=== PATIENT | female | born 1940 | race Caucasian/White ===

== ENCOUNTER 2017-02-23 09:35 | Inpatient (IN) | payer MEDICARE, OTHER ==
--- NOTE | ~2017-02-23 | DS ---
Unit #: [id number] #: [id number] Patient: FARSHAD PAUL [id number] [address] [place], [place] [address] [id number] I MR#: [id number] NAME: FARSHAD PAUL ROOM: 341 Age: 76 Sex: F Admission Date: 02/23/2017 : 1940 Discharge Date: 02/25/2017 Attending Physician: Trisha Rose M.D. Primary Care Physician: Cristian Mak M.D. DISCHARGE SUMMARY REASON FOR ADMISSION Symptomatic anemia. HISTORY OF PRESENT ILLNESS/HOSPITAL COURSE The patient is a 76-year-old, very pleasant female who originally was admitted secondary to a hemoglobin of 5.5, MCV of 63. Please see H and P for complete details. Through hospital course, she was typed and crossed and transfused for a total of three units of packed RBCs. She has also undergone a CT angiogram chest PE protocol secondary to dyspnea as well as prior PE history. It was negative for acute pulmonary embolism. However, it did show questionable thyroid nodule as well as gallstones which were also noted. Pneumonitis could not be excluded. However, the patient did not have any acute symptoms. We placed consultation to Dr. Talavera of [facility]. The patient underwent upper GI endoscopy as well as sigmoidoscopy until approximately 20 cm. Upper GI endoscopy was essentially normal. Sigmoidoscopy until 20 cm was normal as well. There was no active bleeding which was noted. Internal hemorrhoids were commented on. CBC today shows a hemoglobin of 8.4. MCV is at 68.5. Creatinine at the time of discharge is 0.6. While she was here, she received Venofer IV. She also received vitamin B12 times one. At time of discharge, she will follow up with Dr. Anastasiia Torres at [facility] for repeat CBC in approximately 7 to 10 days. Her current baseline hemoglobin is approximately 8. She was made aware that the most likely initially for her anemia is iron deficiency. Her Ferritin level is 7. She should also have vitamin B12 IM set up as an outpatient as her vitamin B12 level currently stands at 193. FINAL DISCHARGE DIAGNOSES 1. Dyspnea secondary to symptomatic anemia. 2. Anemia likely iron deficiency with negative upper GI endoscopy as well as negative sigmoidoscopy with baseline hemoglobin approximately 8 to 8.5. 3. Prior history of pulmonary embolism 1988. 4. Prior history of COPD followed by Dr. Castellanos as an outpatient. 5. Obesity. 6. B12 deficiency. Unit #: [id number] #: [id number] Patient: FARSHAD PAUL FINAL DISCHARGE MEDICATIONS 1. Pulmicort two inhalations daily. 2. Tylenol 650 mg p.o. q.6 p.r.n. 3. Serevent Diskus one inhalation b.i.d. 4. Protonix 40 mg p.o. daily. 5. Avapro 300 mg p.o. daily. DISCHARGE CONDITION Stable. DISCHARGE DISPOSITION Home. FOLLOWUP 1. Followup as an outpatient for aforementioned thyroid nodule where patient requires outpatient ultrasound of thyroid. 2. Followup Dr. Castellanos of Pulmonary Services in two to three months for repeat CT chest. 3. Follow up with Dr. Anastasiia Torres in 7 to 10 days for repeat CBC as well as monitoring of anemia and adjustments of B12 medications. Dictated by... Shayan Garnett/paco TD: 02/28/2017 07:57 JOB #: [id number] DISCHARGE SUMMARY Page 1 of 1 X Trisha Rose MD X DISCHARGE SUMMARY
--- NOTE | ~2017-02-23 | CT16 ---
[facility] A Service of [facility] / [facility] RADIOLOGY TEXT RESULTS PATIENT: FARSHAD PAUL LOCATION: [facility] 341-01 : 41 UNIT #: [id number] AGE: [address]: Trisha Rose MD SEX: F ORDER DR: [id number] [facility] [address] [facility]. [place], [place] [address] [id number] MR#: [id number] Acc #: [id number] NAME: FARSHAD PAUL : 1940 SEX: F STUDY DATE/TIME: 02/23/2017 12:27 UNIT: [facility] ROOM: STUDY DESCRIPTION: CT Angio Chest for PE Attending Physician: Lai Banks M.D. Ordering Physician: Lai Banks M.D. Primary Care Physician: Cristian Mak M.D. MEDICAL IMAGING REPORT This report is preliminary unless electronic signature is present EXAM CT angiography chest for PE 02/23/2017 HISTORY Short of air for [address] pulmonary angiography performed with intravenous administration 80 mL Isovue-370. Three-dimensional reconstructions performed through pulmonary arteries. This CT exam was performed with one or more of the following radiation dose reduction techniques: automatic exposure control, adjustment of mA and/or kV according to patient size, and iterative reconstruction. FINDINGS 1.7 cm rim calcified nodule in the right thyroid lobe posteriorly. If not previously evaluated best further characterized with elective thyroid ultrasound. Smaller nodules seen elsewhere in the bilateral thyroid lobes. No axillary, mediastinal or hilar adenopathy. Heart mildly enlarged. No pleural effusions. Liver unremarkable. There is layering high-density material in the dependent lower gallbladder segment. Appearance raises the possibility of multiple small layering gallstones. Milk of calcium could be considered. Excretion of prior intravascular contrast load could be considered. Correlate with any known recent intravascular contrast administration. There is no ductal dilatation and no indication of choledocholithiasis. No pericholecystic inflammatory change. The spleen, pancreas, adrenal glands and visualized portions of kidneys unremarkable. Small hiatal hernia. Remainder of visualized esophagus, stomach, small bowel and colon unremarkable. [facility] A Service of [facility] / [facility] RADIOLOGY TEXT RESULTS PATIENT: FARSHAD PAUL LOCATION: [facility] 341-01 : 41 UNIT #: [id number] AGE: [address]: Trisha Rose MD SEX: F ORDER DR: Pulmonary parenchyma shows underlying centrilobular and panlobular emphysema. In the atu-su-iasdh lung zones there is some subtle linear interstitial prominence. This may simply reflect chronic change related to the patient's emphysema. The possibility of a very mild interstitial pneumonitis could be considered in the appropriate context. There is no dense airspace disease. There is some minimal patchy ground-glass densities at the dependent left lung base probably atelectatic in nature. Mild pneumonitis could be considered. No suspicious nodule. The pulmonary arteries are well opacified. Some images through the lower lung zones degraded by respiratory motion artifact. There is no compelling evidence of acute pulmonary thromboembolic disease. No aortic aneurysm or dissection. There are atherosclerotic arterial calcifications. The visualized aortic branch vessels are patent. Bony structures show no acute abnormality. IMPRESSION 1. No PE. 2. No evidence of aortic aneurysm or dissection. 3. Underlying centrilobular and panlobular emphysema. 4. Mild linear interstitial prominence in bqo-yh-lxmon lung zones bilaterally could be a reflection of chronic interstitial change in context of emphysema. Mild interstitial pneumonitis might be considered. In addition there are some mild patchy ground-glass densities at the left lung base which may simply represent dependent atelectasis. Mild pneumonitis not excluded. There is no dense airspace disease, pleural effusion pneumothorax or suspicious nodule. 5. 1.7 cm rim-calcified dominant thyroid nodule in the right thyroid lobe. If not previously evaluated, best further characterized with elective thyroid ultrasound. 6. Layering high-density material in the dependent gallbladder most likely layering tiny gallstones versus milk of calcium. In the appropriate clinical context, this could reflect hepatobiliary excretion of a recent intravascular contrast load. Correlate with any recent intravascular contrast load. Gallbladder otherwise unremarkable. There is no biliary ductal dilatation. Dictated by... Silvano Milton M.D. THIS IS AN ELECTRONICALLY VERIFIED REPORT Silvano Milton M.D. at 02/24/2017 6:32 PM UZAIR/oscar TD: 02/23/2017 16:58 JOB #: [id number] MEDICAL IMAGING REPORT Page 1 of 1 COPY
--- NOTE | ~2017-02-23 | CR72 ---
[facility] A Service of [facility] RADIOLOGY TEXT RESULTS PATIENT: VERONICA PAUL LOCATION: [facility] 341 : 41 UNIT #: [id number] AGE: [address]: Trisha Rose MD SEX: F ORDER DR: [id number] [facility] [address] [facility]. [place], [place] [address] [id number] I MR#: [id number] Acc #: [id number] NAME: VERONICA PAUL : 1940 SEX: F STUDY DATE/TIME: UNIT: [facility] ROOM: 341 STUDY DESCRIPTION: CR Chest Single View Portable Attending Physician: Trisha Rose M.D. Ordering Physician: Ed Doctor [id number] [facility] Primary Care Physician: Cristian Mak M.D. MEDICAL IMAGING REPORT This report is preliminary unless electronic signature is present EXAM Chest portable 02/23/2017 1012 hours HISTORY 76-year-old with shortness of air and weakness today. History of hypertension and COPD. COMPARISON None. FINDINGS Single upright portable view demonstrates a mild cardiomegaly and atherosclerotic change in the aorta. The aortic and mediastinal contours are normal. There is hyperinflation of the lungs with interstitial change right greater than left lung. Findings are most suggestive of mild interstitial edema. There is no dense airspace opacification or pleural fluid. IMPRESSION Mild cardiomegaly with bilateral interstitial change right greater than left lung suggesting the presence of edema, less likely interstitial pneumonia. There is no pleural fluid. No pneumothorax. Dictated by... Veronica Holloway M.D. THIS IS AN ELECTRONICALLY VERIFIED REPORT Veronica Holloway M.D. at 02/24/2017 9:25 AM JUAN/bruce TD: 02/23/2017 13:36 JOB #: [id number] [facility] A Service of [facility] RADIOLOGY TEXT RESULTS PATIENT: VERONICA PAUL LOCATION: [facility] 341 : 41 UNIT #: [id number] AGE: [address]: Trisha Rose MD SEX: F ORDER DR: MEDICAL IMAGING REPORT Page 1 of 1 COPY
--- NOTE | ~2017-02-23 | US84 ---
[id number] [facility] [[email or web address] [address] [facility]. [place], [place] [address] [id number] I MR#: [id number] Acc #: [id number] NAME: FARSHAD PAUL : 1940 SEX: F STUDY DATE/TIME: 02/23/2017 15:53 UNIT: [facility] PCU ROOM: 341 STUDY DESCRIPTION: US LE Veins Complete Tres Stdy Attending Physician: Trisha Rose M.D. Ordering Physician: Trisha Rose M.D. Primary Care Physician: Cristian Mak M.D. MEDICAL IMAGING REPORT This report is preliminary unless electronic signature is present EXAM Bilateral leg vein Doppler, 02/23. INDICATION Shortness of air for 2 weeks. Elevated D-dimer. History of pulmonary embolism. TECHNIQUE Venous ultrasound examination of both lower extremities was performed using grayscale, spectral Doppler and color flow Doppler imaging. FINDINGS The examination is negative. There is no evidence of deep venous thrombus from the groin to the lower calf bilaterally. Visualized greater saphenous veins are also patent. IMPRESSION Negative examination. No evidence of lower extremity DVT. Dictated by... Stefan Anders Jr., M.D. THIS IS AN ELECTRONICALLY VERIFIED REPORT Stefan Anders Jr., M.D. at 02/25/2017 3:53 PM PAULA/fortino TD: 02/23/2017 22:39 JOB #: [id number] MEDICAL IMAGING REPORT Page 1 of 1 COPY
--- NOTE | ~2017-02-23 | EKG ---
PATIENT: FARSHAD PAUL UNIT #: [id number] Ventricular Rate: 88 BPM Atrial Rate: 88 BPM P-R Interval: 146 ms QRS Duration: 74 ms Q-T Interval: 366 ms QTC Calculation(Bezet): 442 ms P Petersburg: 62 degrees Calculated R [place]: 50 degrees Calculated T Petersburg: 61 degrees Diagnosis Line: Normal sinus rhythm Diagnosis Line: Normal ECG Diagnosis Line: No previous ECGs available Diagnosis Line: Confirmed by COCO BEJARANO MD ([id number]) on Diagnosis Line: 02/23/2017 2:03:58 PM INTERPRETING MD: DARCI ROSALES
--- NOTE | ~2017-02-23 | OR ---
Unit #: [id number] #: [id number] Patient: FARSHAD PAUL [id number] [address] [place], [place] [address] [id number] I MR#: [id number] NAME: FARSHAD PAUL ROOM: 341 Date of Procedure: 02/24/2017 Admission Date: 02/23/2017 Surgeon: Randolph Talavera M.D. : 1940 Attending Physician: Trisha Rose M.D. Primary Care Physician: Cristian Mak M.D. OPERATIVE REPORT PROCEDURE PERFORMED Esophagogastroduodenoscopy to distal duodenum with sigmoidoscopy to 30 cm. INDICATIONS FOR PROCEDURE A 76-year-old presented with severe iron-deficiency anemia, blood in the stool. MEDICATIONS Monitored anesthesia. POSTOPERATIVE FINDINGS 1. Hiatal hernia. 2. Nonobstructing esophageal ring. 3. Normal stomach. 4. Normal duodenum and distal duodenum. No stigmata or signs of recent upper GI bleeding. 5. Sigmoidoscopy carried out to 20 cm past the rectosigmoid area, because of stool, I cannot go any further. 6. No active bleeding was seen. 7. Scarring from recent banding was seen along with significant internal hemorrhoids. PLAN Continue with iron infusion as well as blood transfusion as needed. Consider repeat colonoscopy for continued bleeding. DESCRIPTION OF PROCEDURE The patient was explained of the procedure, risks, and benefits along with risks and benefits of anesthesia. She was brought to the endoscopy room. Propofol anesthesia was given. Bite block was placed. The scope was passed down the mouth into esophagus, stomach, duodenum, and distal duodenum. Findings as described. No biopsies were taken. Gently, I pulled it out of the patient's mouth. Rectal exam was done, which was normal. EGD scope was used. The scope was lubricated passed up the rectum, advanced up to 20 to 30 cm. At this time, we have to stop because of presence of stool. Rectal mucosa was normal. Scarring seen from recent banding of the internal hemorrhoids. Internal hemorrhoids were noted also. Gently, the scope was pulled out. She tolerated it well. Unit #: [id number] #: [id number] Patient: FARSHAD PAUL Dictated by... Shayan Keating/tabatha TD: 02/24/2017 13:52 JOB #: [id number] OPERATIVE REPORT Page 1 of 1 X Randolph Talavera MD PROCEDURE OPERATIVE NOTE
--- NOTE | ~2017-02-23 | HP ---
Unit #: [id number] #: [id number] Patient: FARSHAD PAUL [id number] [address] [place], [place] [address] [id number] E MR#: [id number] NAME: FARSHAD PAUL ROOM: Age: 76 Sex: F Admission Date: 02/23/2017 : 1940 Attending Physician: Lai Banks M.D. Primary Care Physician: Cristian Mak M.D. HISTORY AND PHYSICAL REASON FOR ADMISSION Dyspnea, profound symptomatic anemia. HISTORY OF PRESENT ILLNESS Patient is a 76-year-old female who states over the past 4-5 weeks she has had progressive shortness of breath as well as dyspnea on exertion worsening over the past 72 hours to the point where she can only walk a few steps. She presented to the ER for further evaluation. While she was evaluated here, routine laboratory studies were performed, which showed a hemoglobin of 5.5 and MCV of 63 and thus she is being admitted for the same. She has a prior history of a DVT in 1988. D-dimer was also ordered by ER physician and was noted to be elevated at 1025 and, therefore, CTA chest is currently pending. Other routine laboratory studies performed show a BMP with potassium of 3.4. LFTs as well as creatinine unremarkable. Cardiac enzymes, first set, are negative. Patient tells me that approximately 2 or 3 months ago, she had a colonoscopy performed by Dr. Donovan. Was told that she had hemorrhoids, but otherwise unremarkable. She has no prior history of upper GI endoscopy. She states that she takes aspirin, Serevent, as well as her inhalers on a regular basis, but she takes no other medications routinely. PAST MEDICAL HISTORY 1. Pulmonary embolism in 1988, treated per patient. Not on current anticoagulation. 2. Prior history of COPD followed by Dr. Castellanos as an outpatient. 3. Obesity. PAST SURGICAL HISTORY Hemorrhoidectomy. Recent colonoscopy, I believe October 2016. HOME MEDICATIONS 1. Serevent. 2. Pulmicort. 3. Aspirin. ALLERGIES Sulfa. FAMILY HISTORY Reviewed. Noncontributory and not pertinent. Unit #: [id number] #: [id number] Patient: FARSHAD PAUL SOCIAL HISTORY Quit smoking in 1988. Approximate 30-40 pack/year smoking history. Alcohol use: Drinks twice a week. Negative illicit drug use. REVIEW OF SYSTEMS Please see HPI. Twelve-point otherwise negative, except for those positives noted in the HPI. PHYSICAL EXAM VITAL SIGNS: Temperature 98, pulse 96, respiratory rate 16, and blood pressure (1) . GENERAL APPEARANCE: 76-year-old female lying comfortably in no acute distress. HEENT: Head: Atraumatic and normocephalic. Ears: Tympanic membranes do not reveal any erythema or injection. NECK: Supple. CVS: S1 and S2 without murmur. RESPIRATORY: Clear. GI/ABDOMEN: Nontender and nondistended. LOWER EXTREMITIES: No evidence of lower extremity edema. No calf tenderness. NEUROLOGIC: Patient A and O x3. No evidence of any focal nerve deficits. DIAGNOSTIC STUDIES LABS AT TIME OF ADMISSION: Please see above. Hemoglobin 5.5 noted. ER COURSE Patient received Solu-Medrol. Transfusion currently ordered and pending. Lasix 40 mg IV x1 as well as Protonix 40 mg IV x1 has been ordered. INITIAL ADMISSION DIAGNOSES 1. Symptomatic anemia. 2. Dyspnea. 3. Underlying COPD. 4. Elevated D-dimer. CTA chest currently pending. 5. Prior history of PE, 1988. 6. Remote history of tobacco abuse. PLAN Admission, telemetry floor. Transfuse. GI consultation. Follow routine laboratory studies. Follow up on CTA chest. PPI therapy at b.i.d. dosing. Two-dimensional echo secondary to underlying dyspnea. Patient ultimately may require hematological consultation as well in consideration that patient did have a negative colonoscopy approximately three months ago. Certainly, upper GI occult bleeding needs to be ruled out. Further hospital course to follow. Patient is full code. Dictated by Shayan Garnett/jac TD: 02/23/2017 13:38 JOB #: [id number] Unit #: [id number] #: [id number] Patient: FARHSAD PAUL HISTORY AND PHYSICAL Page 1 of 1 X Trisha Rose MD HISTORY AND PHYSICAL
[2017-02-23 10:29] LABS: POC - CKMB <1.0 ng/mL (0.0-7.9); POC - TROPONIN <0.05 ng/mL (<=0.05)
[2017-02-23 10:55] LABS: BASOPHIL# 0.1 X10e3 (0-0.3); BASOPHIL% 1.1 % (0-2.5); EOSINOPHIL# 0.3 X10e3 (0-0.7); EOSINOPHIL% 4.4 % (0.0-7.0); HEMATOCRIT 18.8 % (35.0-45.0); LYMPHOCYTE# 1.3 X10e3 (1.0-3.5); LYMPHOCYTE% 17.2 % (17.0-45.0); MEAN CELL VOLUME 63.3 FL (83-96); MEAN CORPUSCULAR HEMOGLOBIN 18.6 PG (28-34); MEAN CORPUSCULAR HGB CONC 29.3 g/dL (30-36); MEAN PLATELET VOLUME 7.9 FL (6.5-11.5); MONOCYTE# 0.7 X10e3 (0-1.0); MONOCYTE% 8.9 % (3.0-12.0); NEUTROPHIL# 5.1 X10e3 (1.5-7.1); NEUTROPHIL% 68.4 % (40-75); PLATELET COUNT 393 X10e3 (140-420); RED BLOOD COUNT 2.97 X10e (3.90-5.30); RED CELL DISTRIBUTION WIDTH 19.2 % (11.0-15.5); WHITE BLOOD COUNT 7.5 X10e3 (4.0-10.5)
[2017-02-23 11:01] LABS: DIFF IND YES; HEMOGLOBIN 5.5 gm/dL (12.0-16.0)
[2017-02-23 11:07] LABS: ALBUMIN SERUM 3.4 g/dL (3.5-5.0); BILIRUBIN, DIRECT 0.1 mg/dL (0.0-0.2); BILIRUBIN,INDIRECT 0.7 mg/dL (0.0-0.9); BILIRUBIN,TOTAL 0.8 mg/dL (0.2-2.0); BUN/CREATININE RATIO 14.28; CALCIUM SERUM 8.4 mg/dL (8.4-10.2); CREATININE SERUM 0.7 mg/dL (0.6-1.4); GLOM FILT RATE Estimated 84.8 mL/min (>60); POTASSIUM 3.4 mmol/L (3.5-5.1); PROTEIN TOTAL SERUM 6.8 g/dL (6.0-8.3)
[2017-02-23 11:29] LABS: ANISOCYTOSIS MOD; RBC NORMAL YES
[2017-02-23 11:30] LABS: HYPOCHROMIA MOD; OVALOCYTES PRESENT; POIKILOCYTOSIS SL; POLYCHROMASIA SL
[2017-02-23 11:33] LABS: PLATELET ESTIMATE NORMAL (NORMAL)
[2017-02-23 12:11] LABS: POC - CKMB <1.0 ng/mL (0.0-7.9); POC - TROPONIN <0.05 ng/mL (<=0.05)
[2017-02-23] MEDS ORDERED: ASPIRIN81 M2 PO (13:43)
[2017-02-23] MEDS ORDERED: HYDROCHLOROTH12.5 M1 PO (13:44)
[2017-02-23] MEDS ORDERED: PULMICORT180 MCG/A1 INH (13:44)
[2017-02-23] MEDS ORDERED: IRBESARTAN-HCT1 EAC1 PO (13:44)
[2017-02-23] MEDS ORDERED: SEREVENT DISKU50 MCG INH (13:45)
[2017-02-23] MEDS ORDERED: PATIENT'S PHARMACY (13:46)
[2017-02-23 19:25] LABS: HEMATOCRIT 28.5 % (35.0-45.0); HEMOGLOBIN 8.9 gm/dL (12.0-16.0)
[2017-02-24 09:26] LABS: HEMATOCRIT 26.4 % (35.0-45.0); MEAN CORPUSCULAR HGB CONC 30.4 g/dL (30-36); MEAN PLATELET VOLUME 8.1 FL (6.5-11.5); RED BLOOD COUNT 3.82 X10e (3.90-5.30); RED CELL DISTRIBUTION WIDTH 22.7 % (11.0-15.5); WHITE BLOOD COUNT 9.6 X10e3 (4.0-10.5)
[2017-02-24 09:27] LABS: MEAN CELL VOLUME 69.1 FL (83-96)
[2017-02-24 09:49] LABS: FERRITIN 7 ng/mL (11-307)
[2017-02-24 10:10] LABS: BUN/CREATININE RATIO 18.33; CALCIUM SERUM 8.5 mg/dL (8.4-10.2); CREATININE SERUM 0.6 mg/dL (0.6-1.4); GLOM FILT RATE Estimated 89.2 mL/min (>60); POTASSIUM 3.9 mmol/L (3.5-5.1)
[2017-02-24 14:38] LABS: HEMATOCRIT 28.9 % (35.0-45.0); HEMOGLOBIN 8.5 gm/dL (12.0-16.0)
[2017-02-25 08:56] LABS: HEMATOCRIT 27.5 % (35.0-45.0); HEMOGLOBIN 8.4 gm/dL (12.0-16.0); MEAN CELL VOLUME 68.5 FL (83-96); MEAN CORPUSCULAR HGB CONC 30.7 g/dL (30-36); MEAN PLATELET VOLUME 8.1 FL (6.5-11.5); RED BLOOD COUNT 4.02 X10e (3.90-5.30); RED CELL DISTRIBUTION WIDTH 22.9 % (11.0-15.5); WHITE BLOOD COUNT 9.6 X10e3 (4.0-10.5)
[2017-02-25 09:29] LABS: ALBUMIN SERUM 3.4 g/dL (3.5-5.0); BILIRUBIN,TOTAL 0.7 mg/dL (0.2-2.0); BUN/CREATININE RATIO 16.66; CALCIUM SERUM 8.6 mg/dL (8.4-10.2); CREATININE SERUM 0.6 mg/dL (0.6-1.4); GLOM FILT RATE Estimated 89.2 mL/min (>60); POTASSIUM 3.1 mmol/L (3.5-5.1); PROTEIN TOTAL SERUM 6.5 g/dL (6.0-8.3)
[2017-02-25] MEDS ORDERED: ACETAMINOPHEN650 M1 PO (11:47)
[2017-02-25] MEDS ORDERED: AVAPRO300 M1 PO (11:48)
[2017-02-25] MEDS ORDERED: PROTONIX PO (11:49)
== END 2017-02-25 16:30 | disposition home or self-care (01) | DRG 377 ==
LOC: CED 09:35 → C3A PCU 13:20 → CED 20:18 → C3A PCU 20:18
PROVIDERS: Emergency Medicine; Family Medicine; Internal Medicine
PROC: 0DJD8ZZ Inspection of Lower Intestinal Tract, Via Natural or Artificial Opening Endoscopic (ICD-10-PCS; 2017-02-23)
PROC: 30233N1 Transfusion of Nonautologous Red Blood Cells into Peripheral Vein, Percutaneous Approach (ICD-10-PCS; 2017-02-23)
PROC: B24BZZZ Ultrasonography of Heart with Aorta (ICD-10-PCS; 2017-02-24)
PROC: 0DJ08ZZ Inspection of Upper Intestinal Tract, Via Natural or Artificial Opening Endoscopic (ICD-10-PCS; principal; 2017-02-24 11:39)
DX: K92.1 Melena (principal); J18.9 Pneumonia, unspecified organism; D50.9 Iron deficiency anemia, unspecified; J44.9 Chronic obstructive pulmonary disease, unspecified; K22.2 Esophageal obstruction; Z86.711 Personal history of pulmonary embolism; E66.9 Obesity, unspecified; E53.8 Deficiency of other specified B group vitamins; K44.9 Diaphragmatic hernia without obstruction or gangrene; K64.8 Other hemorrhoids; Z86.718 Personal history of other venous thrombosis and embolism; Z79.82 Long term (current) use of aspirin; Z88.2 Allergy status to sulfonamides; Z87.891 Personal history of nicotine dependence; K80.80 Other cholelithiasis without obstruction; E04.1 Nontoxic single thyroid nodule
CPT/HCPCS: 36415; 71010; 71275; 80048; 80053; 80076; 82553; 82607; 82728; 83540; 83550; 83735; 83880; 84443; 84484; 85014; 85018; 85025; 85027; 85379; 86850; 86900; 86901; 86923; 93005; 93306; 93970; 94640; 94760; 96374; 96375; 99285; C9113; J1940; J2916; J2930; J3420; P9016; Q9967

== ENCOUNTER → 2017-03-21 | Outpatient (CLI) | payer MEDICARE, OTHER ==
[~2017-03-21] MED LIST: ACETAMINOPHEN650 M1 PO; ASPIRIN81 M2 PO; AVAPRO300 M1 PO; HYDROCHLOROTH12.5 M1 PO; IRBESARTAN-HCT1 EAC1 PO; PATIENT'S PHARMACY; PROTONIX PO; PULMICORT180 MCG/A1 INH; SEREVENT DISKU50 MCG INH
--- NOTE | ~2017-03-21 | US128 ---
[id number] [facility] [address] [facility]. [place], [place] [address] [id number] O MR#: [id number] Acc #: [id number] NAME: FARSHAD PAUL : 1940 SEX: F STUDY DATE/TIME: 03/21/2017 13:11 UNIT: CGUS ROOM: STUDY DESCRIPTION: Thyroid Attending Physician: Anastasiia Torres M.D. Referring Physician: Anastasiia Torres M.D. Ordering Physician: Anastasiia Torres M.D. Primary Care Physician: Anastasiia Torres M.D. MEDICAL IMAGING REPORT This report is preliminary unless electronic signature is present EXAM Thyroid ultrasound INDICATION Abnormal CT angiogram of the chest, which showed multiple bilateral thyroid nodules. This exam is requested for further characterization. TECHNIQUE Carlton-scale and color Doppler sonographic images were obtained through the thyroid gland. FINDINGS The right lobe of the thyroid gland measures 2.2 x 3.6 x 1.8 cm, left lobe measures 1.6 x 3.0 x 1.2 cm, isthmus measures about 3 mm in thickness. Thyroid parenchyma is heterogeneous. This patient does have a hypoechoic nodule within the right lobe of the thyroid gland measuring up to 1.2 x 1.2 x 1.3 cm; it appears to be peripherally calcified with posterior shadowing noted. More inferiorly, there is a cyst measuring 0.9 x 1.0 x 0.9 cm. There is a hypoechoic nodule seen within the superior pole of the left lobe of the thyroid gland measuring 7 x 6 x 5 mm. There is a hypoechoic nodule seen within the inferior pole measuring 1.0 x 1.0 x 1.1 cm. It is difficult to see as a discrete nodule particularly in the longitudinal images. IMPRESSION Bilateral thyroid nodules. I would suggest short-term sonographic followup in 6 months to document continued stability. Dictated by... Candis Newby M.D. THIS IS AN ELECTRONICALLY VERIFIED REPORT Candis Newby M.D. at 03/22/2017 5:01 PM AFF/psc TD: 03/21/2017 22:29 JOB #: [id number] MEDICAL IMAGING REPORT Page 1 of 1 COPY
== END | disposition home or self-care (01) ==
LOC: CGUS 12:52
DX: E04.2 Nontoxic multinodular goiter (principal)
CPT/HCPCS: 76536

== ENCOUNTER 2017-03-29 15:16 | Emergency (ER) | payer MEDICARE, OTHER ==
--- NOTE | ~2017-03-29 | EKG ---
PATIENT: FARSHAD PAUL UNIT #: [id number] Ventricular Rate: 86 BPM Atrial Rate: 86 BPM P-R Interval: 150 ms QRS Duration: 72 ms Q-T Interval: 364 ms QTC Calculation(Bezet): 435 ms P [place]: 84 degrees Calculated R [place]: 15 degrees Calculated T [place]: 38 degrees Diagnosis Line: Normal sinus rhythm Diagnosis Line: Normal ECG Diagnosis Line: When compared with ECG of 23-FEB-2017 10:13, Diagnosis Line: No significant change was found Diagnosis Line: Confirmed by HOLLI RIVAS MD ([id number]) on Diagnosis Line: 03/30/2017 8:22:19 AM INTERPRETING MD: ROB ROSALES
[2017-03-29 16:21] LABS: BASOPHIL# 0.1 X10e3 (0-0.3); BASOPHIL% 0.8 % (0-2.5); DIFF IND YES; EOSINOPHIL# 0.2 X10e3 (0-0.7); EOSINOPHIL% 3.3 % (0.0-7.0); HEMATOCRIT 30.5 % (35.0-45.0); HEMOGLOBIN 9.5 gm/dL (12.0-16.0); LYMPHOCYTE# 1.3 X10e3 (1.0-3.5); LYMPHOCYTE% 17.9 % (17.0-45.0); MEAN CELL VOLUME 76.2 FL (83-96); MEAN CORPUSCULAR HEMOGLOBIN 23.6 PG (28-34); MEAN PLATELET VOLUME 7.8 FL (6.5-11.5); MONOCYTE# 0.6 X10e3 (0-1.0); MONOCYTE% 8.3 % (3.0-12.0); NEUTROPHIL# 5.1 X10e3 (1.5-7.1); NEUTROPHIL% 69.7 % (40-75); PLATELET COUNT 379 X10e3 (140-420); RED BLOOD COUNT 4.01 X10e (3.90-5.30); RED CELL DISTRIBUTION WIDTH 28.9 % (11.0-15.5); WHITE BLOOD COUNT 7.3 X10e3 (4.0-10.5)
[2017-03-29 16:32] LABS: URINE SOURCE CLEAN CATCH
[2017-03-29 16:37] LABS: URINE APPEARANCE CLEAR; URINE BILIRUBIN NEG (NEG); URINE BLOOD NEG (NEG); URINE COLOR YELLOW; URINE GLUCOSE NEG (NEG); URINE KETONE TRACE (NEG); URINE LEUKOCYTE ESTERASE NEG (NEG); URINE NITRATE NEG (NEG); URINE PH 7.5 (5-8); URINE PROTEIN NEG (NEG); URINE SPECIFIC GRAVITY 1.005 (1.003-1.035); URINE UROBILINOGEN 0.2 MG/DL (NEG)
[2017-03-29 16:40] LABS: CULTURE INDICATED? NO
[2017-03-29 16:46] LABS: ALBUMIN SERUM 3.7 g/dL (3.5-5.0); BILIRUBIN, DIRECT 0.1 mg/dL (0.0-0.2); BILIRUBIN,INDIRECT 0.4 mg/dL (0.0-0.9); BILIRUBIN,TOTAL 0.5 mg/dL (0.2-2.0); CALCIUM SERUM 9.1 mg/dL (8.4-10.2); CREATININE SERUM 0.6 mg/dL (0.6-1.4); GLOM FILT RATE Estimated 89.2 mL/min (>60); POTASSIUM 3.3 mmol/L (3.5-5.1); PROTEIN TOTAL SERUM 7.3 g/dL (6.0-8.3)
[2017-03-29 16:48] LABS: MICROCYTOSIS SL; PLATELET ESTIMATE NORMAL (NORMAL); POIKILOCYTOSIS MOD
[2017-03-29 17:18] LABS: POC - CKMB <1.0 ng/mL (0.0-7.9); POC - TROPONIN <0.05 ng/mL (<=0.05)
== END 2017-03-29 17:59 | disposition home or self-care (01) ==
LOC: CED 15:16
PROVIDERS: Emergency Medicine
DX: F41.9 Anxiety disorder, unspecified (principal); I10 Essential (primary) hypertension; Z88.2 Allergy status to sulfonamides; Z79.899 Other long term (current) drug therapy
CPT/HCPCS: 36415; 80048; 80076; 81003; 82553; 84443; 84484; 85025; 93005; 99284